=== PATIENT | male | born 1980 | race Caucasian/White ===

== ENCOUNTER 2018-03-21 18:49 | Emergency (ER) | payer SELFPAY ==
[~2018-03-21] VITALS: Ht 167.6 cm; Wt 95.3 kg
[2018-03-21 18:55] VITALS: BP 86/52
--- NOTE | 2018-03-21 19:20 | NUR ---
PT BIB PD TO ED FOR PRE- BOOK. PT ETOH, DENIES PMH. AAO X3, GCS 14, RESPIRATIONS EVEN AND UNLABORED. AMBULATORY WITH ASSIST. SKIN WARM/PINK/DRY +PMSC. VS, BP ELEVATED, TACHY CARDIAC HR 120'S. DR. CHOUDHARY MADE AWARE OF PT STATUS
[2018-03-21] MEDS ORDERED: NACL 0.9% 2,000 ML IV ONE (19:55)
--- NOTE | 2018-03-21 19:55 | NUR ---
PT BIB PD TO ED BED 5
--- NOTE | 2018-03-21 20:40 | NUR ---
PT LEFT ED WITH PD NAD NOTED. PRE-BOOKED FORM SENT WITH PT. CONDITION & VSS AT TIME OF DISCHARGED.
[2018-03-21 20:48] VITALS: BP 132/81
== END 2018-03-21 20:40 | disposition home or self-care (01) ==
LOC: MED 18:49
DX: F10.129 Alcohol abuse with intoxication, unspecified (principal); I10 Essential (primary) hypertension; Z02.89 Encounter for other administrative examinations
CPT/HCPCS: 99283; 99284

== ENCOUNTER 2020-04-18 11:46 | Emergency (ER) | payer MEDICAID ==
[~2020-04-18] VITALS: Ht 167.6 cm; Wt 106.1 kg
--- NOTE | 2020-04-18 11:47 | NUR ---
Patient BIBA BLS, transferred to bed 4. RN evaluating patient at bedside.
[2020-04-18 11:50] VITALS: BP 130/87
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
--- NOTE | 2020-04-18 11:59 | NUR ---
Dr. Chilel is evaluating the patient at bedside.
--- NOTE | 2020-04-18 12:20 | NUR ---
Patient returned from CT scan. RN reevaluating the patient at bedside.
--- NOTE | 2020-04-18 12:21 | NUR ---
licensed chemical spray technician at bedside.
--- NOTE | 2020-04-18 12:46 | NUR ---
Lunch provided to pt and he states he does not want to eat at this time.
[2020-04-18 14:16] VITALS: BP 128/87
--- NOTE | 2020-04-18 14:16 | NUR ---
Patient discharged with v/s stable. Written and verbal after care instructions given and explained. Patient verbalized understanding. Ambulatory with steady gait. All questions addressed prior to discharge. Advised to follow up with PMD.
== END 2020-04-18 14:16 | disposition home or self-care (01) ==
LOC: MED 11:46
DX: S00.83XA Contusion of other part of head, initial encounter (principal); M25.532 Pain in left wrist; F10.129 Alcohol abuse with intoxication, unspecified; W18.09XA Striking against other object with subsequent fall, initial encounter; Y93.89 Activity, other specified; Y92.89 Other specified places as the place of occurrence of the external cause; Y99.8 Other external cause status; Y90.9 Presence of alcohol in blood, level not specified
CPT/HCPCS: 70450; 72125; 73110; 99285

== ENCOUNTER 2020-04-26 12:51 | Emergency (ER) | payer MEDICAID ==
[~2020-04-26] VITALS: Ht 162.6 cm; Wt 99.8 kg
[2020-04-26 13:00] VITALS: BP 124/75
[2020-04-26] MEDS ORDERED: FAMOTIDINE 20 MG/2 ML VIAL IVP ONE (14:00)
[2020-04-26] MEDS ORDERED: NACL 0.9% 1,000 ML IV ONE (14:00)
[2020-04-26] MEDS ORDERED: ONDANSETRON 4 MG/2 ML VIAL IVP ONE (14:00)
[2020-04-26 14:27] LABS: BASOPHILS # (AUTO) 0.1 K/uL (0.00-0.22); BASOPHILS % (AUTO) 0.7 % (0.0-2.0); EOSINOPHILS % (AUTO) 0.1 % (0.0-4.0); HEMATOCRIT 46.9 % (36-52); HEMOGLOBIN 15.9 g/dL (12.0-18.0); LYMPHOCYTES # (AUTO) 1.5 K/uL (2.0-11.5); LYMPHOCYTES % (AUTO) 17.5 % (20.5-51.1); MEAN CORPUSCULAR HEMOGLOBIN 32 pg (27-31); MEAN CORPUSCULAR HGB CONC 34 g/dL (33-37); MEAN CORPUSCULAR VOLUME 93.1 fL (80-94); MONOCYTES # (AUTO) 0.3 K/uL (0.8-1.0); MONOCYTES % (AUTO) 3.9 % (1.7-9.3); NEUTROPHILS # (AUTO) 6.8 K/uL (1.8-7.7); NEUTROPHILS % (AUTO) 77.8 % (42.2-75.2); PLATELET COUNT (AUTO) 117 K/uL (140-450); RED BLOOD CELL COUNT(AUTO) 5.03 MIL/uL (4.20-6.10); RED CELL DISTRIBUTION WIDTH 16.6 % (11.6-13.7); WHITE BLOOD COUNT (AUTO) 8.7 K/uL (4.8-10.8)
[2020-04-26 14:49] LABS: ANION GAP 17.8 (8-16); CARBON DIOXIDE 24.2 mmol/L (21-32); CREATININE 0.8 mg/dL (0.6-1.3); TOTAL BILIRUBIN 1.5 mg/dL (0.0-1.0)
[2020-04-26 14:56] LABS: APPEARANCE,URINE HAZY (CLEAR); BILIRUBIN,URINE 1+ (NEGATIVE); BLOOD, URINE 2+ (NEGATIVE); COLOR,URINE BROWN (YELLOW); LEUKOCYTE ESTERASE ,URINE NEGATIVE (NEGATIVE); NITRITE, URINE NEGATIVE (NEGATIVE); UGLUCOSE NEGATIVE (NEGATIVE)
[2020-04-26 15:29] LABS: RBC,URINE 11-20 (MOD) /HPF (0-5); WBC,URINE 0-5 /HPF (0-5)
[2020-04-26 15:30] LABS: COARSE GRANULAR CASTS,URINE 0-10 /LPF (None Seen); FINE GRANULAR CASTS,URINE 0-10 /LPF (None Seen)
[2020-04-26 16:06] VITALS: BP 118/78
== END 2020-04-26 16:06 | disposition home or self-care (01) ==
LOC: MED 12:51
DX: R53.1 Weakness (principal); E86.0 Dehydration; F10.10 Alcohol abuse, uncomplicated; F15.90 Other stimulant use, unspecified, uncomplicated; K70.9 Alcoholic liver disease, unspecified; D69.6 Thrombocytopenia, unspecified; R11.2 Nausea with vomiting, unspecified; I10 Essential (primary) hypertension
CPT/HCPCS: 36415; 80053; 81001; 83690; 85025; 87086; 93005; 96361; 96374; 96375; 99284; J2405; J3490; J7030

== ENCOUNTER 2020-05-06 15:31 | Emergency (ER) | payer MEDICAID ==
[~2020-05-06] VITALS: Ht 167.6 cm; Wt 95.3 kg
[2020-05-06 15:37] VITALS: BP 139/92
[2020-05-06] MEDS: IBUPROFEN 600 MG TAB PO ONE (16:28)
[2020-05-06 17:25] VITALS: BP 139/92
== END 2020-05-06 17:25 | disposition home or self-care (01) ==
LOC: MED 15:31
DX: F10.99 Alcohol use, unspecified with unspecified alcohol-induced disorder (principal); F15.10 Other stimulant abuse, uncomplicated; Z20.828 Contact with and (suspected) exposure to other viral communicable diseases
CPT/HCPCS: 71045; 99284

== ENCOUNTER 2020-08-26 15:32 | Emergency (ER) | payer MEDICAID ==
[~2020-08-26] VITALS: Ht 170.2 cm; Wt 49.9 kg
[2020-08-26 15:53] VITALS: BP 115/79
[2020-08-26 16:39] LABS: BASOPHILS # (AUTO) 0.1 K/uL (0.00-0.22); EOSINOPHILS # (AUTO) 0.1 K/uL (0-0.4); HEMATOCRIT 50.9 % (36-52); HEMOGLOBIN 16.7 g/dL (12.0-18.0); LYMPHOCYTES # (AUTO) 2.6 K/uL (2.0-11.5); LYMPHOCYTES % (AUTO) 29.3 % (20.5-51.1); MEAN CORPUSCULAR HEMOGLOBIN 32 pg (27-31); MEAN CORPUSCULAR HGB CONC 33 g/dL (33-37); MEAN CORPUSCULAR VOLUME 97.5 fL (80-94); MONOCYTES # (AUTO) 0.6 K/uL (0.8-1.0); MONOCYTES % (AUTO) 6.7 % (1.7-9.3); NEUTROPHILS # (AUTO) 5.4 K/uL (1.8-7.7); PLATELET COUNT (AUTO) 235 K/uL (140-450); RED BLOOD CELL COUNT(AUTO) 5.23 MIL/uL (4.20-6.10); RED CELL DISTRIBUTION WIDTH 15.9 % (11.6-13.7); WHITE BLOOD COUNT (AUTO) 8.8 K/uL (4.8-10.8)
[2020-08-26 16:55] LABS: ALBUMIN 3.8 g/dL (3.4-5.0); ASPARTATE AMINOTRANSFERASE 89 U/L (15-37); CARBON DIOXIDE 26.8 mmol/L (21-32); CHLORIDE 106 mmol/L (98-107); CREATININE 0.9 mg/dL (0.6-1.3); GFR ARICAN-AMERICAN 122 mL/min (>90); GLUCOSE 99 mg/dL (74-106); POTASSIUM 3.8 mmol/L (3.5-5.1); SODIUM SERUM 144 mmol/L (136-145); TOTAL BILIRUBIN 0.2 mg/dL (0.0-1.0); UREA NITROGEN, BLOOD 10 mg/dL (7-18)
[2020-08-26] MEDS: NACL 0.9% 1,000 ML IV ONE (16:56)
[2020-08-26 17:02] LABS: SALICYLATE < 2.8 mg/dL (2.8-20.0)
[2020-08-26 17:04] LABS: ACETAMINOPHEN < 0.5 ug/ml (10-30)
[2020-08-26 22:00] VITALS: BP 103/65
== END 2020-08-26 22:00 | disposition home or self-care (01) ==
LOC: MED 15:32
DX: F10.129 Alcohol abuse with intoxication, unspecified (principal); I10 Essential (primary) hypertension; Y90.9 Presence of alcohol in blood, level not specified
CPT/HCPCS: 36415; 70450; 80053; 85025; 93005; 96360; 96361; 99285; G0480; G0482

== ENCOUNTER 2020-09-26 22:15 | Emergency (ER) | payer MEDICAID ==
[~2020-09-26] VITALS: Ht 167.6 cm; Wt 99.8 kg
--- NOTE | 2020-09-26 22:15 | NUR ---
PT BIBA ALS. TAKEN TO BED 10. DR. ALICIA AT BEDSIDE
--- NOTE | 2020-09-26 22:18 | NUR ---
RT AT BEDSIDE
[2020-09-26] MEDS ORDERED: LORazepam 2 MG/ML VIAL IVP ONE ×3 (22:25→22:35)
[2020-09-26] MEDS ORDERED: NACL 0.9% 1,000 ML IV ONE (22:25)
[2020-09-26] MEDS ORDERED: THIAMINE 200 MG/2 ML VIAL IM ONE (22:25)
[2020-09-26 22:26] VITALS: BP 131/70
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
[2020-09-26 22:31] LABS: BASOPHILS # (AUTO) 0.1 K/uL (0.00-0.22); EOSINOPHILS % (AUTO) 0.6 % (0.0-4.0); HEMATOCRIT 37.7 % (36-52); HEMOGLOBIN 12.6 g/dL (12.0-18.0); LYMPHOCYTES # (AUTO) 1.7 K/uL (2.0-11.5); LYMPHOCYTES % (AUTO) 22.4 % (20.5-51.1); MEAN CORPUSCULAR HEMOGLOBIN 33 pg (27-31); MEAN CORPUSCULAR HGB CONC 33 g/dL (33-37); MEAN CORPUSCULAR VOLUME 98.8 fL (80-94); MONOCYTES % (AUTO) 13.4 % (1.7-9.3); NEUTROPHILS # (AUTO) 4.6 K/uL (1.8-7.7); NEUTROPHILS % (AUTO) 62.6 % (42.2-75.2); PLATELET COUNT (AUTO) 102 K/uL (140-450); RED BLOOD CELL COUNT(AUTO) 3.82 MIL/uL (4.20-6.10); RED CELL DISTRIBUTION WIDTH 15.2 % (11.6-13.7); WHITE BLOOD COUNT (AUTO) 7.4 K/uL (4.8-10.8)
--- NOTE | 2020-09-26 22:40 | NUR ---
X-Ray at bedside.
--- NOTE | 2020-09-26 22:41 | NUR ---
PT TAKEN TO RADIOLOGY
[2020-09-26] MEDS ORDERED: LORazepam 2 MG/ML VIAL IM/IVP ONE (22:45)
[2020-09-26 22:51] LABS: ALBUMIN 3.5 g/dL (3.4-5.0); ANION GAP 26.9 (8-16); ASPARTATE AMINOTRANSFERASE 365 U/L (15-37); CARBON DIOXIDE 17.3 mmol/L (21-32); CHLORIDE 91 mmol/L (98-107); CREATININE 1.2 mg/dL (0.6-1.3); GFR ARICAN-AMERICAN 88 mL/min (>90); GLUCOSE 167 mg/dL (74-106); POTASSIUM 3.2 mmol/L (3.5-5.1); SODIUM SERUM 132 mmol/L (136-145); TOTAL BILIRUBIN 2.4 mg/dL (0.0-1.0); UREA NITROGEN, BLOOD 6 mg/dL (7-18)
[2020-09-26 22:54] LABS: ACETAMINOPHEN < 0.5 ug/ml (10-30); SALICYLATE < 2.8 mg/dL (2.8-20.0)
--- NOTE | 2020-09-26 23:00 | NUR ---
# 15 FR Urinary catheter inserted utilizing sterile technique. UNABLE TO OBTAIN URINE D/T PATIENT AGITATED, PULLING AT CATHETER. Pt DID NOT tolerate procedure. ERMD MADE AWARE.
[2020-09-26] MEDS ORDERED: levETIRAcetam 100 MG/ML VIAL IV ONE (23:08)
[2020-09-26] MEDS ORDERED: levETIRAcetam 1,000 MG in NACL 0.9% 100 ML IV ONE (23:20)
[2020-09-26] MEDS ORDERED: INTUBATION KIT MC ONE (23:42)
--- NOTE | 2020-09-26 23:55 | NUR ---
NELIDA SWAB COLLECTED AND HANDED TO LAINA TREVIÑO
--- NOTE | 2020-09-27 00:08 | NUR ---
CALLED PATIENTS MOTHER, OBTAINED TELEPHONE CONSENT, CONFIRMED BY 2 RN'S, FOR TRANSFER TO [facility].
--- NOTE | 2020-09-27 00:09 | NUR ---
CALLED [facility] ER, SPOKE WITH DAVID WHO STATED TO CALL BACK WHEN PATIENT IS TRANSFERRED TO SPEAK WITH ASSIGNED NURSE. MADE AWARE [facility] ETA 30-45 MIN.
--- NOTE | 2020-09-27 00:16 | NUR ---
[facility] TRANSPORT AT BEDSIDE
--- NOTE | 2020-09-27 00:24 | NUR ---
Patient to be transferred to [facility]. Is being transferred due to HIGHER LEVEL OF CARE. Receiving facility has accepting physician and available space. ER physician has signed transfer form. Patient or responsible constitution party has agreed to transfer and signed form. Patient belongings inventoried and will be sent with patient. Copy of nursing notes, lab reports, EKG, Physicians Orders and X-rays to be sent with patient. Report called to CHET MYRICK at receiving facility. [facility] ambulance service has been called for transfer. ETA TO FACILITY is 5 MINUTES. Addendum: 09/27/20 at 0036 by [email or web address] CHET MYRICK [phone]
[2020-09-27 00:29] VITALS: BP 131/70
--- NOTE | 2020-09-27 00:36 | NUR ---
PT TAKEN BY [facility] TRANSPORT TO [facility] ER
== END 2020-09-27 00:36 | disposition designated cancer center or children's hospital (05) ==
LOC: MED 22:15
DX: I61.9 Nontraumatic intracerebral hemorrhage, unspecified (principal); Z20.822 Contact with and (suspected) exposure to COVID-19
CPT/HCPCS: 36415; 70450; 71045; 80053; 82550; 82553; 84484; 85025; 87426; 93005; 96361; 96365; 96372; 96375; 96376; 99285; C1758; G0480; G0482; J1953; J2060; J3411; J7030

== ENCOUNTER 2021-03-17 04:18 | Emergency (ER) | payer MEDICAID ==
[~2021-03-17] VITALS: Ht 162.6 cm; Wt 81.6 kg
[2021-03-17 04:18] VITALS: BP 103/60
--- NOTE | 2021-03-17 04:18 | NUR ---
0403- PT JAZZ ROJAS
--- NOTE | 2021-03-17 04:18 | NUR ---
0405- Dr. Maloney examining patient.
[2021-03-17] MEDS ORDERED: NACL 0.9% 1,000 ML IV ONE (04:25)
--- NOTE | 2021-03-17 04:30 | NUR ---
IV 20 G EST TO RAC. LABS DRAWN AND WALKED TO LAB.
--- NOTE | 2021-03-17 04:30 | NUR ---
PT [place]A [place]. [facility] REPORTS PD FOUND PT LAYING IN [place] WITH BEER CANS NEXT TO HIM. PT DEMONSTRATED ABILITY TO WALK. STATES HIS NAME IS "HIREN", HOWEVER NO IDENFICATION ON PT. NOTED WITH BUMP TO RIGHT SIDE OF FOREHEAD. PT DENIES FALLING OR ALTERCATION. COOPERATIVE AND CALM AT THIS TIME. MEDHX- UNOBTAINABLE ALLX- UNOBTAINABLE
[2021-03-17] MEDS ORDERED: MAGNESIUM OXIDE 400 MG TAB PO ONE (04:40)
[2021-03-17] MEDS ORDERED: FOLIC ACID 1 MG TAB PO ONE (04:40)
--- NOTE | 2021-03-17 04:41 | NUR ---
PT UNABLE TO URINATE AT THIS TIME. WILL TRY AGAIN.
[2021-03-17] MEDS ORDERED: MULTIVITAMIN 1 TAB ONE (04:49)
[2021-03-17 04:57] LABS: BASOPHILS # (AUTO) 0.1 K/uL (0.00-0.22); BASOPHILS % (AUTO) 0.8 % (0.0-2.0); EOSINOPHILS # (AUTO) 0.1 K/uL (0-0.4); HEMATOCRIT 38.1 % (36-52); HEMOGLOBIN 12.5 g/dL (12.0-18.0); LYMPHOCYTES # (AUTO) 2.7 K/uL (2.0-11.5); LYMPHOCYTES % (AUTO) 37.2 % (20.5-51.1); MEAN CORPUSCULAR HEMOGLOBIN 29 pg (27-31); MEAN CORPUSCULAR HGB CONC 33 g/dL (33-37); MEAN CORPUSCULAR VOLUME 89.2 fL (80-94); MONOCYTES # (AUTO) 0.6 K/uL (0.8-1.0); MONOCYTES % (AUTO) 8.2 % (1.7-9.3); NEUTROPHILS # (AUTO) 3.8 K/uL (1.8-7.7); NEUTROPHILS % (AUTO) 51.8 % (42.2-75.2); PLATELET COUNT (AUTO) 249 K/uL (140-450); RED BLOOD CELL COUNT(AUTO) 4.27 MIL/uL (4.20-6.10); WHITE BLOOD COUNT (AUTO) 7.3 K/uL (4.8-10.8)
[2021-03-17 05:12] LABS: ALBUMIN 3.5 g/dL (3.4-5.0); CARBON DIOXIDE 27.6 mmol/L (21-32); CREATININE 0.6 mg/dL (0.6-1.3); POTASSIUM 3.6 mmol/L (3.5-5.1); TOTAL BILIRUBIN 0.2 mg/dL (0.0-1.0)
--- NOTE | 2021-03-17 06:13 | NUR ---
Patient appears to be resting comfortably in bed, AUDIBLE SNORING NOTED. AROUSABLE TO VOICE. Vital Signs within normal limits. Respirations even and unlabored. WILL CONTINUE TO MONITOR.
--- NOTE | 2021-03-17 06:40 | NUR ---
URINE COLLECTED VIA BEDSIDE URINAL. 350 CC CLEAR, YELLOW URINE NOTED. SAMPLE SENT TO LAB.
[2021-03-17 07:05] LABS: APPEARANCE,URINE CLEAR (CLEAR); BILIRUBIN,URINE NEGATIVE (NEGATIVE); BLOOD, URINE NEGATIVE (NEGATIVE); COLOR,URINE YELLOW (YELLOW); LEUKOCYTE ESTERASE ,URINE NEGATIVE (NEGATIVE); NITRITE, URINE NEGATIVE (NEGATIVE); PH,URINE 5.5 (5.0-9.0); UGLUCOSE NEGATIVE (NEGATIVE)
--- NOTE | 2021-03-17 07:16 | NUR ---
REPORT GIVEN TO CHET VIRK FOR CONTINUITY OF CARE.
--- NOTE | 2021-03-17 07:20 | NUR ---
Report received from Oralia ROSENBERG, assume care at this time.
[2021-03-17 07:24] LABS: BARBITURATE, URINE NEGATIVE ng/ml (NEG <=200); BENZODIAZEPINE, URINE NEGATIVE ng/mL (NEG <=200); CANNABINOID, URINE NEGATIVE ng/mL (NEG <=50); COCAINE, URINE NEGATIVE ng/mL (NEG <=300); OPIATE, URINE NEGATIVE ng/mL (NEG <=2000); PHENCYCLIDINE SCREEN,URINE NEGATIVE ng/mL (NEG <=25)
--- NOTE | 2021-03-17 07:38 | NUR ---
Patient appears to be resting comfortably in bed, audible snoring noted. Arousable to voice, VSS within normal limits. Respirations even and unlabored. Will continue to monitor.
[2021-03-17] MEDS ORDERED: MULTIVITAMIN/MINERALS 1 TAB PO SCH (09:00)
--- NOTE | 2021-03-17 09:00 | NUR ---
Patient appears to be resting comfortably in bed, audible snoring noted. Arousable to voice, VSS within normal limits. Respirations even and unlabored. Will continue to monitor.
--- NOTE | 2021-03-17 10:45 | NUR ---
PATIENT ROAD TESTED, PER DR. ALEXA GARCIA TO BED D/C HOME.
[2021-03-17 11:23] VITALS: BP 119/87
--- NOTE | 2021-03-28 09:16 | NUR ---
LATE ENTRY---NORMAL SALINE IV FLUIDS DISCONTINUED AT 1125.
== END 2021-03-17 11:25 | disposition home or self-care (01) ==
LOC: EDBD 04:18 → MED 04:18 → EDUNIT# 04:18 → MED 11:25
DX: F10.129 Alcohol abuse with intoxication, unspecified (principal)
CPT/HCPCS: 36415; 80053; 80305; 81003; 85025; 96360; 96361; 99284; J7030

== ENCOUNTER 2021-04-01 21:26 | Emergency (ER) | payer MEDICAID ==
[~2021-04-01] VITALS: Ht 167.6 cm; Wt 90.7 kg
[2021-04-01 21:28] VITALS: BP 140/88
[2021-04-01 22:26] LABS: BASOPHILS % (AUTO) 0.6 % (0.0-2.0); EOSINOPHILS # (AUTO) 0.1 K/uL (0-0.4); EOSINOPHILS % (AUTO) 0.6 % (0.0-4.0); HEMATOCRIT 42.5 % (36-52); HEMOGLOBIN 13.8 g/dL (12.0-18.0); LYMPHOCYTES # (AUTO) 2.9 K/uL (2.0-11.5); MEAN CORPUSCULAR HEMOGLOBIN 30 pg (27-31); MEAN CORPUSCULAR HGB CONC 32 g/dL (33-37); MEAN CORPUSCULAR VOLUME 91.3 fL (80-94); MONOCYTES # (AUTO) 0.5 K/uL (0.8-1.0); MONOCYTES % (AUTO) 6.5 % (1.7-9.3); NEUTROPHILS # (AUTO) 4.5 K/uL (1.8-7.7); NEUTROPHILS % (AUTO) 56.3 % (42.2-75.2); PLATELET COUNT (AUTO) 251 K/uL (140-450); RED BLOOD CELL COUNT(AUTO) 4.66 MIL/uL (4.20-6.10); RED CELL DISTRIBUTION WIDTH 16.6 % (11.6-13.7)
[2021-04-01 23:01] LABS: ALBUMIN 4.3 g/dL (3.4-5.0); ANION GAP 17.3 (8-16); CARBON DIOXIDE 24.4 mmol/L (21-32); CREATININE 0.8 mg/dL (0.6-1.3); POTASSIUM 3.7 mmol/L (3.5-5.1); TOTAL BILIRUBIN 0.3 mg/dL (0.0-1.0)
[2021-04-01 23:14] VITALS: BP 140/88
--- NOTE | 2021-04-01 23:14 | NUR ---
NO NURSING INTERVENTIONS NEEDED
--- NOTE | 2021-04-01 23:15 | NUR ---
PATIENT [facility] POLICE DEPT. PATIENT EXAMINED BY DR. HILLIARD. PATIENT MEDICALLY CLEARED AND RELEASED IN CUSTODY IN STABLE CONDITION. ORIGINAL PRE-BOOK FORM GIVEN TO OFFICER YASMIN.
== END 2021-04-01 23:15 ==
LOC: MED 21:26
DX: S00.83XA Contusion of other part of head, initial encounter (principal); F10.129 Alcohol abuse with intoxication, unspecified; Z02.89 Encounter for other administrative examinations; X58.XXXA Exposure to other specified factors, initial encounter; Y93.89 Activity, other specified; Y92.89 Other specified places as the place of occurrence of the external cause; Y99.8 Other external cause status
CPT/HCPCS: 36415; 70450; 80053; 85025; 99284; G0482

== ENCOUNTER 2021-09-09 00:20 | Emergency (ER) | payer MEDICAID ==
[~2021-09-09] VITALS: Ht 162.6 cm; Wt 86.2 kg
--- NOTE | 2021-09-09 00:22 | NUR ---
CARLOS SCHULZ ALS TO ER BED 09
[2021-09-09 00:23] VITALS: BP 132/93
--- NOTE | 2021-09-09 00:39 | NUR ---
Received as a RUN, here for alcohol intoxication. On assesment patient is somnolent, aox3, connected to cardiac monitoring. ED MD at the bedside, awaiting for orders.
[2021-09-09] MEDS ORDERED: NACL 0.9% 1,000 ML IV ONE (00:40)
[2021-09-09] MEDS ORDERED: NACL 0.9% 2,000 ML IV ONE (00:40)
[2021-09-09] MEDS ORDERED: NALOXONE PFS 2 MG/2 ML SYR IVP ONE (00:40)
--- NOTE | 2021-09-09 00:45 | NUR ---
g18 iv started on left ac
--- NOTE | 2021-09-09 00:54 | NUR ---
patient transported to radiology for CT head
--- NOTE | 2021-09-09 01:08 | NUR ---
patient back from CT, condom catheter placed and connected to urine bag, awaiting for urine sample for UDS.
[2021-09-09 01:16] LABS: ASPARTATE AMINOTRANSFERASE 29 U/L (15-37); CHLORIDE 102 mmol/L (98-107); CREATININE 0.6 mg/dL (0.6-1.3); GFR ARICAN-AMERICAN 194 mL/min (>90); GLUCOSE 87 mg/dL (74-106); SODIUM SERUM 141 mmol/L (136-145); TOTAL BILIRUBIN 0.3 mg/dL (0.0-1.0); UREA NITROGEN, BLOOD 7 mg/dL (7-18)
[2021-09-09 01:27] LABS: SALICYLATE < 2.8 mg/dL (2.8-20.0)
[2021-09-09 01:28] LABS: ACETAMINOPHEN < 0.5 ug/ml (10-30)
[2021-09-09 02:06] LABS: BASOPHILS # (AUTO) 0.1 K/uL (0.00-0.22); BASOPHILS % (AUTO) 0.6 % (0.0-2.0); EOSINOPHILS # (AUTO) 0.1 K/uL (0-0.4); EOSINOPHILS % (AUTO) 1.1 % (0.0-4.0); HEMATOCRIT 44.2 % (36-52); HEMOGLOBIN 14.7 g/dL (12.0-18.0); LYMPHOCYTES # (AUTO) 2.5 K/uL (2.0-11.5); LYMPHOCYTES % (AUTO) 28.9 % (20.5-51.1); MEAN CORPUSCULAR HEMOGLOBIN 30 pg (27-31); MEAN CORPUSCULAR HGB CONC 33 g/dL (33-37); MEAN CORPUSCULAR VOLUME 90.4 fL (80-94); MONOCYTES # (AUTO) 0.7 K/uL (0.8-1.0); NEUTROPHILS # (AUTO) 5.3 K/uL (1.8-7.7); NEUTROPHILS % (AUTO) 61.4 % (42.2-75.2); PLATELET COUNT (AUTO) 291 K/uL (140-450); RED BLOOD CELL COUNT(AUTO) 4.89 MIL/uL (4.20-6.10); RED CELL DISTRIBUTION WIDTH 16.3 % (11.6-13.7); WHITE BLOOD COUNT (AUTO) 8.6 K/uL (4.8-10.8)
--- NOTE | 2021-09-09 04:15 | NUR ---
Urine bag checked for output, bag empty.
[2021-09-09 06:00] VITALS: BP 107/59
--- NOTE | 2021-09-09 06:15 | NUR ---
patient now fully awake, road test done and noted steady gait. Provided with fresh set of clothing, iv line removed, exited ED with stable VS.
== END 2021-09-09 06:45 | disposition home or self-care (01) ==
LOC: MED 00:20
DX: F10.129 Alcohol abuse with intoxication, unspecified (principal); R41.82 Altered mental status, unspecified; I10 Essential (primary) hypertension
CPT/HCPCS: 36415; 70450; 71045; 80053; 84484; 85025; 93005; 96361; 96374; 99285; G0480; G0482; J2310; Q0092

== ENCOUNTER 2021-09-21 14:23 | Emergency (ER) | payer MEDICAID ==
[~2021-09-21] VITALS: Ht 170.2 cm; Wt 83.9 kg
[2021-09-21 14:30] VITALS: BP 121/78
--- NOTE | 2021-09-21 14:37 | NUR ---
SISTER: [phone]
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
--- NOTE | 2021-09-21 15:31 | NUR ---
pt courtney tellez, ambulated with steady gait, Dr hammonds made aware
[2021-09-21 16:05] VITALS: BP 128/82
--- NOTE | 2021-09-21 16:05 | NUR ---
DCPatient discharged with v/s stable. Written and verbal after care instructions given and explained. Patient verbalized understanding. Ambulatory with steady gait. All questions addressed prior to discharge. Advised to follow up with PMD.
== END 2021-09-21 16:05 | disposition home or self-care (01) ==
LOC: MED 14:23
DX: S80.212A Abrasion, left knee, initial encounter (principal); F10.10 Alcohol abuse, uncomplicated; I10 Essential (primary) hypertension; Z98.890 Other specified postprocedural states; X58.XXXA Exposure to other specified factors, initial encounter; Y92.89 Other specified places as the place of occurrence of the external cause; Y93.89 Activity, other specified; Y99.8 Other external cause status
CPT/HCPCS: 99283

== ENCOUNTER 2021-09-23 17:58 | Emergency (ER) | payer MEDICAID ==
[~2021-09-23] VITALS: Ht 170.2 cm; Wt 72.6 kg
[2021-09-23 17:58] VITALS: BP 101/52
--- NOTE | 2021-09-23 18:02 | NUR ---
PATIENT TO CHD W/C ASSIST
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
[2021-09-23 19:16] LABS: BASOPHILS # (AUTO) 0.1 K/uL (0.00-0.22); BASOPHILS % (AUTO) 0.9 % (0.0-2.0); EOSINOPHILS # (AUTO) 0.1 K/uL (0-0.4); EOSINOPHILS % (AUTO) 1.1 % (0.0-4.0); HEMATOCRIT 42.6 % (36-52); HEMOGLOBIN 14.4 g/dL (12.0-18.0); LYMPHOCYTES # (AUTO) 2.4 K/uL (2.0-11.5); LYMPHOCYTES % (AUTO) 34.5 % (20.5-51.1); MEAN CORPUSCULAR HEMOGLOBIN 31 pg (27-31); MEAN CORPUSCULAR HGB CONC 34 g/dL (33-37); MEAN CORPUSCULAR VOLUME 90.4 fL (80-94); MONOCYTES # (AUTO) 0.5 K/uL (0.8-1.0); MONOCYTES % (AUTO) 6.9 % (1.7-9.3); NEUTROPHILS % (AUTO) 56.6 % (42.2-75.2); PLATELET COUNT (AUTO) 264 K/uL (140-450); RED BLOOD CELL COUNT(AUTO) 4.71 MIL/uL (4.20-6.10); RED CELL DISTRIBUTION WIDTH 16.7 % (11.6-13.7)
[2021-09-23 19:35] LABS: ANION GAP 15.8 (8-16); CARBON DIOXIDE 24.8 mmol/L (21-32); CHLORIDE 99 mmol/L (98-107); CREATININE 0.8 mg/dL (0.6-1.3); GFR ARICAN-AMERICAN 139 mL/min (>90); GLUCOSE 83 mg/dL (74-106); POTASSIUM 3.6 mmol/L (3.5-5.1); SODIUM SERUM 136 mmol/L (136-145); UREA NITROGEN, BLOOD 6 mg/dL (7-18)
[2021-09-23 19:43] LABS: ALBUMIN 4.2 g/dL (3.4-5.0); ASPARTATE AMINOTRANSFERASE 42 U/L (15-37); TOTAL BILIRUBIN 0.6 mg/dL (0.0-1.0)
--- NOTE | 2021-09-23 19:48 | NUR ---
provided pt with grayson
[2021-09-23 20:02] LABS: SALICYLATE < 2.8 mg/dL (2.8-20.0)
[2021-09-23 20:04] LABS: ACETAMINOPHEN < 0.5 ug/ml (10-30)
[2021-09-23 20:21] LABS: BARBITURATE, URINE NEGATIVE ng/ml (NEG <=200); BENZODIAZEPINE, URINE NEGATIVE ng/mL (NEG <=200); CANNABINOID, URINE NEGATIVE ng/mL (NEG <=50); COCAINE, URINE NEGATIVE ng/mL (NEG <=300); OPIATE, URINE NEGATIVE ng/mL (NEG <=2000); PHENCYCLIDINE SCREEN,URINE NEGATIVE ng/mL (NEG <=25)
[2021-09-23] MEDS ORDERED: MULTIVITAMIN-12 10 ML, FOLIC ACID 1 MG in NACL 0.9% 1,000 ML IV ONE (20:25)
[2021-09-23] MEDS ORDERED: NACL 0.9% 1,000 ML IV ONE (20:25)
--- NOTE | 2021-09-23 22:33 | NUR ---
IV removed, catheter intact and site benign. Applied folded 4x4 gauze and tape to stop bleeding.
[2021-09-23 22:35] VITALS: BP 118/77
--- NOTE | 2021-09-23 22:35 | NUR ---
Patient discharged with v/s stable. Written and verbal after care instructions given and explained. Patient verbalized understanding. Ambulatory with steady gait. All questions addressed prior to discharge. Advised to follow up with PMD. PATIENT REFUSED TRANSPORTATION, FOOD, HOMELESS PACKET, OR EXTRA CLOTHES.
== END 2021-09-23 22:35 | disposition home or self-care (01) ==
LOC: MED 17:58
DX: F10.129 Alcohol abuse with intoxication, unspecified (principal); R41.82 Altered mental status, unspecified; I10 Essential (primary) hypertension
CPT/HCPCS: 36415; 80053; 80305; 85025; 99283; G0480; G0482; J7030

== ENCOUNTER 2021-10-16 12:37 | Emergency (ER) | payer MEDICAID ==
[~2021-10-16] VITALS: Ht 157.5 cm; Wt 82.1 kg
[2021-10-16 12:45] VITALS: BP 144/65
[2021-10-16 13:45] LABS: APPEARANCE,URINE CLEAR (CLEAR); BILIRUBIN,URINE NEGATIVE (NEGATIVE); BLOOD, URINE NEGATIVE (NEGATIVE); COLOR,URINE YELLOW (YELLOW); LEUKOCYTE ESTERASE ,URINE NEGATIVE (NEGATIVE); NITRITE, URINE NEGATIVE (NEGATIVE); UGLUCOSE NEGATIVE (NEGATIVE)
[2021-10-16 13:51] LABS: BASOPHILS # (AUTO) 0.1 K/uL (0.00-0.22); BASOPHILS % (AUTO) 1.2 % (0.0-2.0); EOSINOPHILS % (AUTO) 0.3 % (0.0-4.0); HEMATOCRIT 44.9 % (36-52); HEMOGLOBIN 14.9 g/dL (12.0-18.0); LYMPHOCYTES # (AUTO) 1.9 K/uL (2.0-11.5); LYMPHOCYTES % (AUTO) 25.5 % (20.5-51.1); MEAN CORPUSCULAR HEMOGLOBIN 31 pg (27-31); MEAN CORPUSCULAR HGB CONC 33 g/dL (33-37); MEAN CORPUSCULAR VOLUME 92.9 fL (80-94); MONOCYTES # (AUTO) 0.4 K/uL (0.8-1.0); MONOCYTES % (AUTO) 5.6 % (1.7-9.3); NEUTROPHILS # (AUTO) 5.1 K/uL (1.8-7.7); NEUTROPHILS % (AUTO) 67.4 % (42.2-75.2); PLATELET COUNT (AUTO) 329 K/uL (140-450); RED BLOOD CELL COUNT(AUTO) 4.83 MIL/uL (4.20-6.10); RED CELL DISTRIBUTION WIDTH 17.1 % (11.6-13.7); WHITE BLOOD COUNT (AUTO) 7.6 K/uL (4.8-10.8)
[2021-10-16 14:06] LABS: ALBUMIN 4.2 g/dL (3.4-5.0); ANION GAP 12.2 (8-16); CREATININE 0.6 mg/dL (0.6-1.3); POTASSIUM 4.2 mmol/L (3.5-5.1); TOTAL BILIRUBIN 0.4 mg/dL (0.0-1.0)
--- NOTE | 2021-10-16 14:10 | NUR ---
SPOKE TO PATIENT, PATIENT HAS LANGUAGE DEFECIT DUE TO LEFT CRANIOTOMY HE DENIES ANY PAIN NOR DISCOMFORT AT THIS TIME.
[2021-10-16 14:36] LABS: BARBITURATE, URINE NEGATIVE ng/ml (NEG <=200); BENZODIAZEPINE, URINE NEGATIVE ng/mL (NEG <=200); CANNABINOID, URINE NEGATIVE ng/mL (NEG <=50); COCAINE, URINE NEGATIVE ng/mL (NEG <=300); OPIATE, URINE NEGATIVE ng/mL (NEG <=2000); PHENCYCLIDINE SCREEN,URINE NEGATIVE ng/mL (NEG <=25)
== END 2021-10-16 14:56 | disposition home or self-care (01) ==
LOC: EDUNIT# 12:37 → MED 12:37
DX: S50.11XA Contusion of right forearm, initial encounter (principal); S09.90XA Unspecified injury of head, initial encounter; F10.129 Alcohol abuse with intoxication, unspecified; M79.631 Pain in right forearm; E11.9 Type 2 diabetes mellitus without complications; Z98.890 Other specified postprocedural states; Z87.820 Personal history of traumatic brain injury; Y90.8 Blood alcohol level of 240 mg/100 ml or more; W18.39XA Other fall on same level, initial encounter; Y92.89 Other specified places as the place of occurrence of the external cause; Y93.89 Activity, other specified; Y99.8 Other external cause status
CPT/HCPCS: 36415; 70450; 73090; 80053; 80305; 81003; 82140; 85025; 99285; G0482

== ENCOUNTER 2021-10-20 13:38 | Emergency (ER) | payer MEDICAID ==
[~2021-10-20] VITALS: Ht 162.6 cm; Wt 80.7 kg
[2021-10-20 13:46] VITALS: BP 127/81
--- NOTE | 2021-10-20 13:50 | NUR ---
PT TO WAIT IN CHAIR A.
--- NOTE | 2021-10-20 14:07 | NUR ---
KAREN PETTIT ATTEMPTED TO EVALUATE PT, NO ANSWER IN CHAIR, LOBBY OR OUTSIDE
--- NOTE | 2021-10-20 14:15 | NUR ---
2ND ATTEMPT TO CALL PT, NO ANSWER.
--- NOTE | 2021-10-20 14:41 | NUR ---
FINAL ATTEMPT, NO ANSWER IN LOBBY/OUTSIDE. ATTEMPTED TO CALL PT, NO ANSWER. PATIENT LEFT WITHOUT BEING SEEN BY KAREN PETTIT. NO FURTHER CARE PROVIDED FOR PATIENT.
== END 2021-10-20 14:07 | disposition left against medical advice (07) ==
LOC: MED 13:38
DX: F10.10 Alcohol abuse, uncomplicated (principal); Z53.21 Procedure and treatment not carried out due to patient leaving prior to being seen by health care provider

== ENCOUNTER 2021-10-24 02:24 | Inpatient (IN) | payer MEDICAID ==
[~2021-10-24] VITALS: Ht 167.6 cm; Wt 75.3 kg
[2021-10-24 02:25] VITALS: BP 115/93
[2021-10-24] MEDS ORDERED: LORazepam 2 MG/ML VIAL IVP ONE (02:35)
[2021-10-24] MEDS ORDERED: levETIRAcetam 1,000 MG in NACL 0.9% 100 ML IV ONE (02:35)
[2021-10-24] MEDS ORDERED: levETIRAcetam 100 MG/ML VIAL IV ONE (02:40)
[2021-10-24 02:47] LABS: BASOPHILS % (AUTO) 0.9 % (0.0-2.0); EOSINOPHILS # (AUTO) 0.1 K/uL (0-0.4); EOSINOPHILS % (AUTO) 2.3 % (0.0-4.0); HEMATOCRIT 38.5 % (36-52); HEMOGLOBIN 12.8 g/dL (12.0-18.0); LYMPHOCYTES # (AUTO) 1.6 K/uL (2.0-11.5); LYMPHOCYTES % (AUTO) 32.7 % (20.5-51.1); MEAN CORPUSCULAR HEMOGLOBIN 31 pg (27-31); MEAN CORPUSCULAR HGB CONC 33 g/dL (33-37); MEAN CORPUSCULAR VOLUME 92.6 fL (80-94); MONOCYTES # (AUTO) 0.4 K/uL (0.8-1.0); MONOCYTES % (AUTO) 9.1 % (1.7-9.3); NEUTROPHILS # (AUTO) 2.6 K/uL (1.8-7.7); PLATELET COUNT (AUTO) 131 K/uL (140-450); RED BLOOD CELL COUNT(AUTO) 4.16 MIL/uL (4.20-6.10); RED CELL DISTRIBUTION WIDTH 16.6 % (11.6-13.7); WHITE BLOOD COUNT (AUTO) 4.8 K/uL (4.8-10.8)
[2021-10-24 03:05] LABS: ALBUMIN 3.3 g/dL (3.4-5.0); ANION GAP 16.9 (8-16); CARBON DIOXIDE 22.2 mmol/L (21-32); CREATININE 0.8 mg/dL (0.6-1.3); POTASSIUM 3.1 mmol/L (3.5-5.1); TOTAL BILIRUBIN 1.5 mg/dL (0.0-1.0)
[2021-10-24] MEDS ORDERED: NACL 0.9% 1,000 ML IV ONE (03:25)
[2021-10-24] MEDS ORDERED: LORazepam 1 MG TAB PO PRN (03:25)
--- NOTE | 2021-10-24 03:25 | NUR ---
CORBY SWAB DONE AND SENT TO LAB
--- NOTE | 2021-10-24 03:33 | NUR ---
ADMIT TO MED SURG. HOLD UNTIL AVAIL BED
--- NOTE | 2021-10-24 05:14 | NUR ---
PT RESTING ON MONTIOR AND 2L NC.
[2021-10-24 06:14] LABS: APPEARANCE,URINE CLEAR (CLEAR); BILIRUBIN,URINE NEGATIVE (NEGATIVE); BLOOD, URINE 1+ (NEGATIVE); COLOR,URINE YELLOW (YELLOW); LEUKOCYTE ESTERASE ,URINE NEGATIVE (NEGATIVE); NITRITE, URINE NEGATIVE (NEGATIVE); UGLUCOSE NEGATIVE (NEGATIVE)
--- NOTE | 2021-10-24 06:21 | NUR ---
URINE OBTAINED AND SENT TO LAB. PT IS MORE ALERT .
--- NOTE | 2021-10-24 06:35 | NUR ---
ROOM 124B AFTER CHANGE OF SHIFT.
[2021-10-24 06:41] LABS: WBC,URINE 0-5 /HPF (0-5)
[2021-10-24 06:43] LABS: CALCIUM OXALATE CRYSTALS,UR None Seen /HPF (None Seen); COARSE GRANULAR CASTS,URINE None Seen /LPF (None Seen); FINE GRANULAR CASTS,URINE None Seen /LPF (None Seen); HYALINE CASTS, URINE None Seen /LPF (None Seen); OTHER CASTS, URINE None Seen /LPF (None Seen); OTHER CRYSTALS,URINE None Seen /HPF (None Seen); RED BLOOD CELL CASTS,URINE None Seen /LPF (None Seen); TRICHOMONAS,URINE None Seen /HPF (None Seen); TRIPLE PHOSPHATE CRYSTAL,UR None Seen /HPF (None Seen); URIC ACID CRYSTALS,URINE None Seen /HPF (None Seen); URINE AMORPHOUS URATE None Seen /HPF (None Seen); WAXY CASTS,URINE None Seen /LPF (None Seen); YEAST,URINE Few /HPF (None Seen)
--- NOTE | 2021-10-24 07:19 | NUR ---
RECIEVED REPORT FROM [facility]. ASSUMED CARE AT THIS TIME
--- NOTE | 2021-10-24 07:58 | NUR ---
Patient will be admitted to care of DR ZUÑIGA . Admited to Med/Surg. Will go to room 124B. Belongings list completed. BEDSIDE REPORT GIVEN TO DAVID
[2021-10-24] MEDS ORDERED: HYDROcodone/APAP 7.5/325 MG 1 TAB PO PRN (08:20)
[2021-10-24] MEDS ORDERED: POTASSIUM CHLORIDE 10 MEQ TABER PO PRN (08:20)
[2021-10-24] MEDS ORDERED: ZOLPIDEM 5 MG TAB PO PRN (08:20)
[2021-10-24] MEDS ORDERED: DOCUSATE SODIUM 100 MG GELCAP PO PRN (08:20)
[2021-10-24] MEDS ORDERED: ONDANSETRON 4 MG/2 ML VIAL IM/IVP PRN (08:20)
[2021-10-24] MEDS ORDERED: MULTIVITAMIN-12 10 ML, THIAMINE 100 MG, FOLIC ACID 1 MG, MAGNESIUM SULFATE 50% 2,000 MG... IV SCH ×5 (08:20)
[2021-10-24] MEDS: NACL 0.9% 1,000 ML IV SCH ×2 (08:20→16:30)
[2021-10-24] MEDS ORDERED: ACETAMINOPHEN 325 MG TAB PO PRN (08:20)
[2021-10-24] MEDS ORDERED: guaiFENesin DM 200/20 MG-10 ML 10 ML UDC PO PRN (08:20)
[2021-10-24 09:04] LABS: PROTHROMBIN TIME 10.7 secs (10.8-13.4)
[2021-10-24 09:15] LABS: CHOL/HDL RATIO 1.7 (1-4.5); FREE T4 (FREE THYROXINE) 0.75 ng/dL (0.76-1.46); MAGNESIUM 1.9 mg/dL (1.8-2.4); PHOSPHORUS 3.3 mg/dL (2.5-4.9); THYROID STIMULATING HORMONE 3.18 uIU/mL (0.34-3.74)
[2021-10-24] MEDS ORDERED: FLUCONAZOLE 100 MG TAB PO SCH (12:08)
[2021-10-24] MEDS: levETIRAcetam 500 MG TAB PO SCH ×2 (12:25→20:30)
[2021-10-24] MEDS: PANTOPRAZOLE 40 MG TABEC PO SCH (12:25)
--- NOTE | 2021-10-24 12:50 | NUR ---
PATIENT HAS BEEN SCREENED AND CATEGORIZED MODERATE NUTRITION RISK. PATIENT WILL BE SEEN WITHIN 3-5 DAYS OF ADMISSION. MARLENA HINOJOSA RD
--- NOTE | 2021-10-24 15:55 | NUR ---
DC PLANNING SW ATTEMPTED TO MEET WITH CLIENT FOR THE PURPOSE OF DISCUSSING AND GATHERING COLLATERAL INFORMATION. PATIENT WAS APHASIC. SW UNABLE TO ASSESS PATIENT COMPREHENSION OF QUESTIONS. PATIENT WAS UNABLE TO PROVIDE EMERGENCY CONTACT INFORMATION. SW TO ATTEMPT LOCATING FAMILY/EMERGENCY CONTACT.
[2021-10-24 16:00] VITALS: BP 137/56
--- NOTE | 2021-10-24 18:28 | NUR ---
PATIENT PULLED IV SECOND TIME, INSERTED 20 ON LEFT ARM, IV INFUSING ORDERED, EXPLAINED TO PATIENT THAT HE IS IN HOSPITAL, AND HE NEEDS IV. HE SAYS HE WANT TO GO AND TAKE A SHOWER. COMFORT MEASURE DONE.[id number]
--- NOTE | 2021-10-24 19:35 | NUR ---
RECEIVED PT FROM AM NURSE FOR CONTINUITY OF CARE. PT IS STABLE
[2021-10-24 20:00] VITALS: BP 125/79
--- NOTE | 2021-10-24 21:30 | NUR ---
ALL MED GIVEN, NO SEIZURE NOTED,RESPIRATIONS EVEN AND UNLABORED,NO DISTRESS NOTED
[2021-10-25] VITALS: BP 133/84
[2021-10-25] MEDS: NACL 0.9% 1,000 ML IV SCH ×4 (00:30→23:22)
--- NOTE | 2021-10-25 01:00 | NUR ---
PT SLEEPING COMFORTABLY,BREATHING EVEN AND UNLABORED,NO DISTRESS NOTED
--- NOTE | 2021-10-25 03:00 | NUR ---
COLLRECTED URINE FOR DRUG SCREEN,PT IS STABLE ,NO SEIZURE NOTED
[2021-10-25 04:00] VITALS: BP 127/84
[2021-10-25 05:43] LABS: BASOPHILS % (AUTO) 0.6 % (0.0-2.0); EOSINOPHILS # (AUTO) 0.1 K/uL (0-0.4); EOSINOPHILS % (AUTO) 2.2 % (0.0-4.0); HEMATOCRIT 38.6 % (36-52); HEMOGLOBIN 12.8 g/dL (12.0-18.0); LYMPHOCYTES % (AUTO) 18.9 % (20.5-51.1); MEAN CORPUSCULAR HEMOGLOBIN 31 pg (27-31); MEAN CORPUSCULAR HGB CONC 33 g/dL (33-37); MEAN CORPUSCULAR VOLUME 93.2 fL (80-94); MONOCYTES # (AUTO) 0.4 K/uL (0.8-1.0); MONOCYTES % (AUTO) 8.3 % (1.7-9.3); NEUTROPHILS # (AUTO) 3.7 K/uL (1.8-7.7); PLATELET COUNT (AUTO) 102 K/uL (140-450); RED BLOOD CELL COUNT(AUTO) 4.14 MIL/uL (4.20-6.10); RED CELL DISTRIBUTION WIDTH 16.5 % (11.6-13.7); WHITE BLOOD COUNT (AUTO) 5.2 K/uL (4.8-10.8)
--- NOTE | 2021-10-25 06:00 | NUR ---
PT IS AWAKE ,NO COMPLAIN OF PAIN,NO SEIZURES NOTED
[2021-10-25 06:14] LABS: ANION GAP 13.8 (8-16); CARBON DIOXIDE 25.3 mmol/L (21-32); CREATININE 0.7 mg/dL (0.6-1.3); POTASSIUM 3.1 mmol/L (3.5-5.1)
--- NOTE | 2021-10-25 07:00 | NUR ---
POTASSIUM LEVEL AT 3.1, KDUR 40 MEQ PRN ADMINISTERED
[2021-10-25 08:00] VITALS: BP 124/80
[2021-10-25 08:08] LABS: T4 (THYROXINE) 4.9 ug/dL (4.5-12.0)
[2021-10-25] MEDS: MULTIVITAMIN 1 TAB PO SCH (10:25)
[2021-10-25] MEDS: FOLIC ACID 1 MG TAB PO SCH (10:25)
[2021-10-25] MEDS: PANTOPRAZOLE 40 MG TABEC PO SCH (10:25)
[2021-10-25] MEDS: levETIRAcetam 500 MG TAB PO SCH ×2 (10:25→22:34)
[2021-10-25] MEDS: THIAMINE 100 MG TAB PO SCH (10:26)
--- NOTE | 2021-10-25 11:37 | NUR ---
PATIENT RESTING IN BED AND NO SEIZURES NOTED.
[2021-10-25 12:00] VITALS: BP 110/74
[2021-10-25 16:00] VITALS: BP 120/76
--- NOTE | 2021-10-25 19:20 | NUR ---
RECEIVED PT FROM AM NURSE FOR CONTINUITY OF CARE. PATIENT IS WELL RESTED IN BED. ON ROOM AIR. NO SOB NOTED. BREATHING EVEN UNLABORED. NO COMPLAINTS OF PAIN AT THIS TIME. SAFETY MEASURES IN PLACE. ABLE TO AMBULATE TO THE RESTROOM. CALL LIGHT WITHIN REACH. WILL CONTINUE TO MONITOR PT.
--- NOTE | 2021-10-25 22:34 | NUR ---
ADMINISTERED MEDICATIONS PER MD ORDERED.
[2021-10-26] VITALS: BP 134/88
[2021-10-26] MEDS: NACL 0.9% 1,000 ML IV SCH ×2 (00:20→08:30)
--- NOTE | 2021-10-26 03:40 | NUR ---
PATIENT IS SLEEPING. CHEST RISE AND FALL SYMMETRICALLY. CALL LIGHT WITHIN REACH.
[2021-10-26 05:58] LABS: BASOPHILS % (AUTO) 0.6 % (0.0-2.0); EOSINOPHILS # (AUTO) 0.2 K/uL (0-0.4); EOSINOPHILS % (AUTO) 3.5 % (0.0-4.0); HEMATOCRIT 36.8 % (36-52); HEMOGLOBIN 12.2 g/dL (12.0-18.0); LYMPHOCYTES # (AUTO) 1.2 K/uL (2.0-11.5); LYMPHOCYTES % (AUTO) 26.9 % (20.5-51.1); MEAN CORPUSCULAR HEMOGLOBIN 31 pg (27-31); MEAN CORPUSCULAR HGB CONC 33 g/dL (33-37); MEAN CORPUSCULAR VOLUME 93.7 fL (80-94); MONOCYTES # (AUTO) 0.6 K/uL (0.8-1.0); MONOCYTES % (AUTO) 12.8 % (1.7-9.3); NEUTROPHILS # (AUTO) 2.5 K/uL (1.8-7.7); NEUTROPHILS % (AUTO) 56.2 % (42.2-75.2); PLATELET COUNT (AUTO) 77 K/uL (140-450); RED BLOOD CELL COUNT(AUTO) 3.93 MIL/uL (4.20-6.10); RED CELL DISTRIBUTION WIDTH 16.8 % (11.6-13.7); WHITE BLOOD COUNT (AUTO) 4.4 K/uL (4.8-10.8)
--- NOTE | 2021-10-26 07:21 | NUR ---
ENDORSED PATIENT TO AM NURSE FOR CONTINUITY OF CARE IN STABLE CONDITION
[2021-10-26 07:33] LABS: ANION GAP 14.4 (8-16); CREATININE 0.7 mg/dL (0.6-1.3); POTASSIUM 3.4 mmol/L (3.5-5.1)
[2021-10-26 08:00] VITALS: BP 134/86
[2021-10-26] MEDS: PANTOPRAZOLE 40 MG TABEC PO SCH (08:31)
[2021-10-26] MEDS: THIAMINE 100 MG TAB PO SCH (08:31)
[2021-10-26] MEDS: MULTIVITAMIN 1 TAB PO SCH (08:31)
[2021-10-26] MEDS: FOLIC ACID 1 MG TAB PO SCH (08:32)
[2021-10-26] MEDS: levETIRAcetam 500 MG TAB PO SCH (08:32)
[2021-10-26] MEDS ORDERED: KEP500 PO (10:12)
[2021-10-26] MEDS ORDERED: MULT-2253 PO (10:14)
--- NOTE | 2021-10-26 11:17 | NUR ---
DC PLANNING: THE PATIENT WAS BIBA FROM HOME WITH C/O SEIZURE. 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 ETOH LEVEL 11, PATIENT GIVEN ATIVAN IV AND KEPPRA IVP, ADMITTED TO [facility] FOR OBSERVATION AND NEURO WORKUP. CM ATTEMPTED TO SPEAK WITH PATIENT AT THE BEDSIDE, THE PATIENT IS ABLE TO GIVE ONE WORK ANSWERS OF YES BUT NOT MORE, NOT CLEAR IF HE UNDERSTANDS QUESTIONS OR STATEMENTS HE REPLIES "YES" TO ALL VERBAL INTERACTION. RADHA DELACRUZ HAS BEEN SPEAKING WITH THE PATIENTS MOTHER REGARDING DC PLANNING, PER HIS MOTHER THE PATIENT IS ACTIVELY ALCOHOLIC AND PRIMARILY HOMELESS, SIBLINGS SOMETIMES TAKE HIM IN. DC PLAN AT THIS TIME UNCLEAR, JAYME WILL OUT TO HIS FAMILY TO SEE IF THEY ARE WILLING TO HOUSE HIM, ANTICIPATE PATIENT WILL DC TODAY. CM WILL FOLLOW. Addendum: 10/26/21 at 1240 by Mima Romero CM DC PLANNING: THE RADHA JAYME SPOKE WITH THE PATIENTS MOTHER WHO STATES SHE WILL COME BETWEEN 4-6 PM TODAY TO PICK THE PATIENT UP. SHE IS UNABLE TO COME SOONER SHE IS WORKING. CM WILL FOLLOW.
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
[2021-10-26 14:11] VITALS: BP 134/86
--- NOTE | 2021-10-26 14:50 | NUR ---
patient home in stable condition accompanied by student nurses and endorsed to sister. home with no seizures noted.no iv. iv site dry and intact.
[2021-10-26] MEDS ORDERED: levETIRAcetam 500 MG TAB PO SCH (21:00)
== END 2021-10-26 14:30 | disposition home or self-care (01) | DRG 53 ==
LOC: MED 02:24 → MMU 03:32 → MTU 05:29
PROVIDERS: ADMIT Family Medicine; ATTEND Family Medicine
PROC: 4A00X4Z Measurement of Central Nervous Electrical Activity, External Approach (ICD-10-PCS; principal; 2021-10-26)
DX: G40.409 Other generalized epilepsy and epileptic syndromes, not intractable, without status epilepticus (principal); G92.8 Other toxic encephalopathy; D69.6 Thrombocytopenia, unspecified; E46 Unspecified protein-calorie malnutrition; E87.1 Hypo-osmolality and hyponatremia; E83.51 Hypocalcemia; G93.89 Other specified disorders of brain; K76.0 Fatty (change of) liver, not elsewhere classified; E11.65 Type 2 diabetes mellitus with hyperglycemia; N39.0 Urinary tract infection, site not specified; F10.239 Alcohol dependence with withdrawal, unspecified; R74.01 Elevation of levels of liver transaminase levels; E87.6 Hypokalemia; I10 Essential (primary) hypertension; Z20.822 Contact with and (suspected) exposure to COVID-19; S09.93XA Unspecified injury of face, initial encounter; X58.XXXA Exposure to other specified factors, initial encounter; Y93.89 Activity, other specified; Y92.89 Other specified places as the place of occurrence of the external cause; Y99.8 Other external cause status; I69.320 Aphasia following cerebral infarction; I69.392 Facial weakness following cerebral infarction; Z68.26 Body mass index [BMI] 26.0-26.9, adult
CPT/HCPCS: 36415; 70450; 71045; 76700; 80048; 80053; 81001; 82150; 83036; 83690; 83735; 83880; 84100; 84436; 84439; 84443; 84479; 85025; 85610; 85730; 87081; 96361; 96365; 96375; 99291; A9153; G0482; J1953; J2060; J3411; J3475; J3490; J7030; Q0092

== ENCOUNTER 2021-11-17 08:52 | Emergency (ER) | payer MEDICAID ==
[~2021-11-17] VITALS: Ht 162.6 cm; Wt 68.0 kg
[~2021-11-17 08:52] MED LIST: KEP500 PO; MULT-2253 PO
[2021-11-17 08:53] VITALS: BP 141/98
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
[2021-11-17 10:46] VITALS: BP 98/56
--- NOTE | 2021-11-17 11:05 | NUR ---
PT OFFERED ICE CHIPS, AWAKE AND ALERT, RESPIRATIONS EVEN, DENIES ANY NAUSEA, ABLE TO ANSWER SIMPLE QUESTIONS
--- NOTE | 2021-11-17 11:25 | NUR ---
PT ROAD TESTED. PT AMBULATED TO RESTROOM UNASSISTED WITH STEADY GAIT. DR CHOUDHARY MADE AWARE
--- NOTE | 2021-11-17 11:32 | NUR ---
Patient discharged with v/s stable. Written and verbal after care instructions ABOUT ALCOHOL INTOXICATION given and explained. Patient verbalized understanding. Ambulatory with steady gait. All questions addressed prior to discharge. Advised to follow up with PMD. PT PROVIDED WITH MEAL
== END 2021-11-17 11:32 | disposition home or self-care (01) ==
LOC: MED 08:52
DX: F10.10 Alcohol abuse, uncomplicated (principal); E11.9 Type 2 diabetes mellitus without complications; I10 Essential (primary) hypertension; Z86.73 Personal history of transient ischemic attack (TIA), and cerebral infarction without residual deficits; Z79.899 Other long term (current) drug therapy; Z98.890 Other specified postprocedural states
CPT/HCPCS: 99283

== ENCOUNTER 2021-11-18 10:01 | Emergency (ER) | payer MEDICAID ==
[~2021-11-18] VITALS: Ht 167.6 cm; Wt 90.7 kg
[2021-11-18 10:07] VITALS: BP 118/80
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
[2021-11-18] MEDS ORDERED: NACL 0.9% 1,000 ML IV SCH (10:35)
--- NOTE | 2021-11-18 10:53 | NUR ---
DR. PIRES AT BEDSIDE EVALUATING PATIENT.
--- NOTE | 2021-11-18 11:03 | NUR ---
Lab at bedside.
[2021-11-18 11:37] LABS: BASOPHILS # (AUTO) 0.1 K/uL (0.00-0.22); BASOPHILS % (AUTO) 0.9 % (0.0-2.0); EOSINOPHILS % (AUTO) 0.5 % (0.0-4.0); HEMATOCRIT 44.8 % (36-52); HEMOGLOBIN 14.6 g/dL (12.0-18.0); LYMPHOCYTES % (AUTO) 30.6 % (20.5-51.1); MEAN CORPUSCULAR HEMOGLOBIN 31 pg (27-31); MEAN CORPUSCULAR HGB CONC 33 g/dL (33-37); MEAN CORPUSCULAR VOLUME 93.8 fL (80-94); MONOCYTES # (AUTO) 0.3 K/uL (0.8-1.0); MONOCYTES % (AUTO) 4.5 % (1.7-9.3); NEUTROPHILS # (AUTO) 4.1 K/uL (1.8-7.7); NEUTROPHILS % (AUTO) 63.5 % (42.2-75.2); PLATELET COUNT (AUTO) 217 K/uL (140-450); RED BLOOD CELL COUNT(AUTO) 4.78 MIL/uL (4.20-6.10); RED CELL DISTRIBUTION WIDTH 15.4 % (11.6-13.7); WHITE BLOOD COUNT (AUTO) 6.5 K/uL (4.8-10.8)
[2021-11-18 12:32] LABS: ALBUMIN 3.9 g/dL (3.4-5.0); ANION GAP 13.6 (8-16); CREATININE 0.7 mg/dL (0.6-1.3); POTASSIUM 4.6 mmol/L (3.5-5.1); TOTAL BILIRUBIN 0.5 mg/dL (0.0-1.0)
[2021-11-18] MEDS ORDERED: MAG SULF 2000 MG/WATER PREMIX 50 ML IV STA (13:01)
[2021-11-18] MEDS ORDERED: FOLIC ACID 5 MG, MULTIVITAMIN-12 10 ML in NACL 0.9% 1,000 ML IV ONE (13:05)
[2021-11-18] MEDS ORDERED: THIAMINE 200 MG/2 ML VIAL IM ONE (13:05)
[2021-11-18] MEDS ORDERED: FOLIC ACID 5 MG, MULTIVITAMIN-12 10 ML in NACL 0.9% 1,000 ML IV SCH (13:56)
--- NOTE | 2021-11-18 14:20 | NUR ---
Patient is laying in bed, all needs met. Vital signs stable.
[2021-11-18 15:03] VITALS: BP 132/77
--- NOTE | 2021-11-18 15:03 | NUR ---
Patient discharged with v/s stable. Written and verbal after care instructions given. Patient verbalized understanding. Ambulatory with steady gait. All questions addressed prior to discharge. Advised to follow up with PMD. Homeless packet given.
== END 2021-11-18 15:03 | disposition home or self-care (01) ==
LOC: MED 10:01
DX: F10.129 Alcohol abuse with intoxication, unspecified (principal); E11.9 Type 2 diabetes mellitus without complications; I10 Essential (primary) hypertension; Z86.73 Personal history of transient ischemic attack (TIA), and cerebral infarction without residual deficits; Z79.899 Other long term (current) drug therapy
CPT/HCPCS: 36415; 80053; 83690; 85025; 96361; 96365; 96372; 99284; G0482; J3411; J3475; A9153; J3490; J7030

== ENCOUNTER 2021-12-26 14:59 | Emergency (ER) | payer MEDICAID ==
[~2021-12-26] VITALS: Ht 167.6 cm; Wt 89.8 kg
[2021-12-26 15:06] VITALS: BP 121/77
--- NOTE | 2021-12-26 20:36 | NUR ---
CALLED FOR PT FROM [facility], UNABLE TO LOCATE PT AT THIS TIME.
--- NOTE | 2021-12-26 20:53 | NUR ---
2ND ATTEMPT TO LOCATE PT FROM LOBBY. UNABLE TO LOCATE PT AT THIS TIME.
--- NOTE | 2021-12-26 21:27 | NUR ---
3RD ATTEMP TO L;OCATE PT FROM [facility]. UTL. NO FURTHER CARE PROVIDED.
== END 2021-12-26 20:36 | disposition left against medical advice (07) ==
LOC: MED 14:59
DX: F10.129 Alcohol abuse with intoxication, unspecified (principal); Z53.21 Procedure and treatment not carried out due to patient leaving prior to being seen by health care provider

== ENCOUNTER 2022-09-27 20:24 | Inpatient (IN) | payer MEDICAID ==
[~2022-09-27] VITALS: Ht 175.3 cm; Wt 86.2 kg
--- NOTE | 2022-09-27 20:32 | NUR ---
PT JAZZ ALS. TAKEN TO BED 8
[2022-09-27 20:34] VITALS: BP 120/88
--- NOTE | 2022-09-27 20:37 | NUR ---
Dr. Horan spoke with patient's mother.
--- NOTE | 2022-09-27 20:42 | NUR ---
Dr. Horan examining patient.
[2022-09-27] MEDS ORDERED: NACL 0.9% 1,000 ML IV ONE (20:45)
[2022-09-27] MEDS ORDERED: LORazepam 2 MG/ML VIAL IVP ONE (20:45)
[2022-09-27] MEDS ORDERED: levETIRAcetam 1,000 MG in NACL 0.9% 100 ML IV ONE (20:45)
--- NOTE | 2022-09-27 21:02 | NUR ---
Patient taken to CT scan via gurney.
--- NOTE | 2022-09-27 21:14 | NUR ---
PT RETURN FROM CT
[2022-09-27] MEDS ORDERED: levETIRAcetam 100 MG/ML VIAL IV ONE (21:17)
[2022-09-27 21:23] LABS: BASOPHILS % (AUTO) 0.3 % (0.0-2.0); EOSINOPHILS % (AUTO) 0.1 % (0.0-4.0); HEMATOCRIT 46.8 % (36-52); HEMOGLOBIN 15.8 g/dL (12.0-18.0); LYMPHOCYTES # (AUTO) 0.8 K/uL (2.0-11.5); LYMPHOCYTES % (AUTO) 7.5 % (20.5-51.1); MEAN CORPUSCULAR HEMOGLOBIN 32 pg (27-31); MEAN CORPUSCULAR HGB CONC 34 g/dL (33-37); MEAN CORPUSCULAR VOLUME 93.2 fL (80-94); MONOCYTES # (AUTO) 0.9 K/uL (0.8-1.0); NEUTROPHILS % (AUTO) 84.1 % (42.2-75.2); PLATELET COUNT (AUTO) 202 K/uL (140-450); RED BLOOD CELL COUNT(AUTO) 5.03 MIL/uL (4.20-6.10); RED CELL DISTRIBUTION WIDTH 13.8 % (11.6-13.7); WHITE BLOOD COUNT (AUTO) 10.7 K/uL (4.8-10.8)
[2022-09-27 21:44] LABS: ALBUMIN 4.1 g/dL (3.4-5.0); ANION GAP 15.8 (8-16); ASPARTATE AMINOTRANSFERASE 41 U/L (15-37); CARBON DIOXIDE 26.7 mmol/L (21-32); CHLORIDE 101 mmol/L (98-107); CREATININE 1.3 mg/dL (0.6-1.3); GFR ARICAN-AMERICAN 79 mL/min (>90); GLUCOSE 141 mg/dL (74-106); POTASSIUM 3.5 mmol/L (3.5-5.1); SODIUM SERUM 140 mmol/L (136-145); TOTAL BILIRUBIN 0.7 mg/dL (0.0-1.0); UREA NITROGEN, BLOOD 10 mg/dL (7-18)
[2022-09-27 21:46] LABS: SALICYLATE < 2.8 mg/dL (2.8-20.0)
--- NOTE | 2022-09-27 22:10 | NUR ---
COVID-19 swab collected and sent to lab.
[2022-09-27 22:18] LABS: ACETAMINOPHEN < 0.5 ug/ml (10-30)
[2022-09-27] MEDS ORDERED: LORazepam 2 MG/ML VIAL IVP PRN (22:50)
[2022-09-27] MEDS ORDERED: FOLIC ACID IV SCH (23:30)
[2022-09-27] MEDS ORDERED: MAG SULF 2000 MG/WATER PREMIX 50 ML IV SCH (23:30)
[2022-09-27] MEDS ORDERED: THIAMINE IV SCH (23:30)
[2022-09-27] MEDS ORDERED: NACL 0.9% IV SCH (23:30)
--- NOTE | 2022-09-28 00:50 | NUR ---
Pt report given to CHET Woodruff. transfer to telemtry bed 126A
[2022-09-28] MEDS ORDERED: THIAMINE 200 MG/2 ML VIAL ONE (00:54)
[2022-09-28] MEDS ORDERED: FOLIC ACID 5 MG/ML SYR ONE (01:01)
[2022-09-28 01:40] VITALS: BP 122/63
--- NOTE | 2022-09-28 01:40 | NUR ---
PT ARRIVED FROM ER VIA GURNEY. PT AWAKE, ALERT AND ORIENTED X 3. PT APHASIC, AMBULATED TO BED WITH STEADY GAIT. ON ROOM AIR, BREATHING EVEN AND UNLABORED.IV ON L FA G20 SWOLLEN AND INFILTRATED. NO S/SX OF DISTRESS AT THIS MOMENT. NO COMPLAINS OF PAIN. ORIENTED TO ROOM AND CALL LIGHT.MRSA SWAB DONE. SEIZURE PRECAUTIONS IN PLACE. ALL SAFETY PRECAUTIONS IN PLACE. CALL LIGHT WITHIN REACH. WILL CONTINUE TO MONITOR.
--- NOTE | 2022-09-28 02:00 | NUR ---
Complaining of pain to IV site. Restarted on R AC G20. Successful after 1 attempt. Will observe for any signs of infiltration.
[2022-09-28] MEDS ORDERED: MAG SULF 2000 MG/WATER PREMIX 50 ML IV SCH (02:05)
[2022-09-28 04:00] VITALS: BP 97/55
--- NOTE | 2022-09-28 06:40 | NUR ---
PT IS STABLE. NO ACUTE EVENTS THROUGHOUT THE NIGHT.ALL NEEDS MET. NO S/SX OF DISTRESS AT THE MOMENT. ALL PRECAUTIONS IN PLACE. CALL LIGHT WITHIN REACH. WILL ENDORSE TO DAY SHIFT NURSE.
[2022-09-28 08:00] VITALS: BP 97/55
--- NOTE | 2022-09-28 08:06 | NUR ---
RECEIVED IN NOACUTE DISTRESS, AOX3. ALL SAFETY MEASURES IN PLACE VOIDING WELL
--- NOTE | 2022-09-28 10:30 | NUR ---
PATIENT HAS BEEN SCREENED AND CATEGORIZED MODERATE NUTRITION RISK. PATIENT WILL BE SEEN WITHIN 3-5 DAYS OF ADMISSION. / REVIEWED BY MARLENA HINOJOSA RD
[2022-09-28] MEDS ORDERED: ONDANSETRON 4 MG/2 ML VIAL IVP PRN (10:55)
[2022-09-28] MEDS ORDERED: diazePAM 5 MG TAB PO PRN (10:55)
[2022-09-28 11:25] LABS: BASOPHILS % (AUTO) 0.5 % (0.0-2.0); EOSINOPHILS % (AUTO) 0.3 % (0.0-4.0); HEMATOCRIT 44.6 % (36-52); HEMOGLOBIN 15.1 g/dL (12.0-18.0); LYMPHOCYTES # (AUTO) 0.9 K/uL (2.0-11.5); LYMPHOCYTES % (AUTO) 10.3 % (20.5-51.1); MEAN CORPUSCULAR HEMOGLOBIN 32 pg (27-31); MEAN CORPUSCULAR HGB CONC 34 g/dL (33-37); MEAN CORPUSCULAR VOLUME 94.1 fL (80-94); MONOCYTES # (AUTO) 0.9 K/uL (0.8-1.0); MONOCYTES % (AUTO) 9.4 % (1.7-9.3); NEUTROPHILS # (AUTO) 7.3 K/uL (1.8-7.7); NEUTROPHILS % (AUTO) 79.5 % (42.2-75.2); PLATELET COUNT (AUTO) 183 K/uL (140-450); RED BLOOD CELL COUNT(AUTO) 4.74 MIL/uL (4.20-6.10); RED CELL DISTRIBUTION WIDTH 13.4 % (11.6-13.7); WHITE BLOOD COUNT (AUTO) 9.1 K/uL (4.8-10.8)
[2022-09-28 11:40] LABS: ANION GAP 13.1 (8-16); CARBON DIOXIDE 26.6 mmol/L (21-32); POTASSIUM 3.7 mmol/L (3.5-5.1)
[2022-09-28 12:00] VITALS: BP 97/55
--- NOTE | 2022-09-28 12:13 | NUR ---
DC PLANNING SW ATTEMPTED TO MEET PT AT BEDSIDE HOWEVER, PT STRUGGLED TO PARTICIPATE IN ASSESSMENT. PT APHASIC AND CAN ONLY ANSWER SIMPLE QUESTIONS WITH YES OR NO ANSWERS. SW REQUESTED PERMISSION TO CALL PTS MOTHER FATIMAH AGUILAR, TO GATHER COLLAT INFO, PT AGREED. SW OUTREACHED TO PTS MOTHER FATIMAH, . FATIMAH UNAVAILABLE AND RETURN CONTACT PROVIDED TO FAMILY MEMBER THAT ANSWERED. SW TO FOLLOW
[2022-09-28 12:36] LABS: CKMB RELATIVE INDEX 0.5 (0.0-2.5); CREATINE KINASE MB 14.5 ng/mL (0-3.6)
--- NOTE | 2022-09-28 20:00 | NUR ---
PATIENT IN BED WELL RESTED ON ROOM AIR. NO SOB NOTED. RESPIRATION EVEN UNLABORED. IVF BANANA BAG INFUSING 100 ML/HR IN THE RIGHT AC. DENIES PAIN OR ANY DISCOMFORT. SAFETY MEASURES IN PLACE. AMBULATORY. CALL LIGHT ON EASY REACH.
[2022-09-28 20:23] VITALS: BP 97/55
[2022-09-28] MEDS: levETIRAcetam 500 MG TAB PO SCH (21:20)
--- NOTE | 2022-09-28 21:20 | NUR ---
ADMINISTERED SCHEDULED DUE MEDICATION.
[2022-09-29] VITALS: BP 105/66
[2022-09-29 04:00] VITALS: BP 105/73
[2022-09-29 06:09] LABS: BASOPHILS % (AUTO) 0.7 % (0.0-2.0); EOSINOPHILS # (AUTO) 0.1 K/uL (0-0.4); EOSINOPHILS % (AUTO) 1.6 % (0.0-4.0); HEMATOCRIT 42.1 % (36-52); HEMOGLOBIN 14.3 g/dL (12.0-18.0); LYMPHOCYTES # (AUTO) 1.4 K/uL (2.0-11.5); LYMPHOCYTES % (AUTO) 30.4 % (20.5-51.1); MEAN CORPUSCULAR HEMOGLOBIN 32 pg (27-31); MEAN CORPUSCULAR HGB CONC 34 g/dL (33-37); MONOCYTES # (AUTO) 0.4 K/uL (0.8-1.0); MONOCYTES % (AUTO) 9.3 % (1.7-9.3); NEUTROPHILS # (AUTO) 2.7 K/uL (1.8-7.7); PLATELET COUNT (AUTO) 155 K/uL (140-450); RED BLOOD CELL COUNT(AUTO) 4.43 MIL/uL (4.20-6.10); RED CELL DISTRIBUTION WIDTH 13.5 % (11.6-13.7); WHITE BLOOD COUNT (AUTO) 4.7 K/uL (4.8-10.8)
[2022-09-29 07:07] LABS: ALBUMIN 3.3 g/dL (3.4-5.0); ANION GAP 11.9 (8-16); CARBON DIOXIDE 27.4 mmol/L (21-32); CREATININE 0.9 mg/dL (0.6-1.3); POTASSIUM 3.3 mmol/L (3.5-5.1); TOTAL BILIRUBIN 1.9 mg/dL (0.0-1.0)
--- NOTE | 2022-09-29 07:07 | NUR ---
GAVE REPORT TO MORNING SHIFT NURSE FOR CONTINUITY OF CARE. PATIENT STABLE.
[2022-09-29] MEDS: FOLIC ACID IV SCH (08:00)
[2022-09-29] MEDS: MULTIVITAMIN IV SCH (08:00)
[2022-09-29] MEDS: NACL IV SCH (08:00)
[2022-09-29] MEDS: THIAMINE IV SCH (08:00)
[2022-09-29] MEDS: levETIRAcetam 500 MG TAB PO SCH ×2 (09:00→20:47)
[2022-09-29 11:34] VITALS: BP 111/77
[2022-09-29 16:00] VITALS: BP 109/77
[2022-09-29 20:00] VITALS: BP 109/73
--- NOTE | 2022-09-29 20:47 | NUR ---
ADMINISTERED SCHEDULED DUE MEDICATION.
[2022-09-30] VITALS: BP 102/66
[2022-09-30 04:00] VITALS: BP 104/65
[2022-09-30 06:11] LABS: BASOPHILS % (AUTO) 0.8 % (0.0-2.0); EOSINOPHILS # (AUTO) 0.2 K/uL (0-0.4); HEMATOCRIT 44.3 % (36-52); HEMOGLOBIN 14.6 g/dL (12.0-18.0); LYMPHOCYTES # (AUTO) 1.6 K/uL (2.0-11.5); LYMPHOCYTES % (AUTO) 30.5 % (20.5-51.1); MEAN CORPUSCULAR HEMOGLOBIN 32 pg (27-31); MEAN CORPUSCULAR HGB CONC 33 g/dL (33-37); MEAN CORPUSCULAR VOLUME 95.7 fL (80-94); MONOCYTES # (AUTO) 0.5 K/uL (0.8-1.0); MONOCYTES % (AUTO) 9.9 % (1.7-9.3); NEUTROPHILS % (AUTO) 55.8 % (42.2-75.2); PLATELET COUNT (AUTO) 158 K/uL (140-450); RED BLOOD CELL COUNT(AUTO) 4.63 MIL/uL (4.20-6.10); RED CELL DISTRIBUTION WIDTH 13.8 % (11.6-13.7); WHITE BLOOD COUNT (AUTO) 5.3 K/uL (4.8-10.8)
--- NOTE | 2022-09-30 06:44 | NUR ---
PATIENT IS AWAKE VERBALLY RESPONSIVE. BREATHING NORMAL WITH SYMMETRICAL RISE AND FALL OF THE CHEST. AFEBRILE. PATIENT IN STABLE CONDITION. WILL ENDORSE TO DAY SHIFT NURSE FOR CONTINUITY OF CARE.
[2022-09-30 06:48] LABS: ANION GAP 13.3 (8-16); CARBON DIOXIDE 26.3 mmol/L (21-32); CREATININE 0.8 mg/dL (0.6-1.3); POTASSIUM 3.6 mmol/L (3.5-5.1)
[2022-09-30 07:18] LABS: CKMB RELATIVE INDEX 0.2 (0.0-2.5)
--- NOTE | 2022-09-30 07:50 | NUR ---
ENDORSED PATIENT TO AM NURSE SANDRA FOR CONTINUITY OF CARE.
[2022-09-30] MEDS: MULTIVITAMIN IV SCH (09:54)
[2022-09-30] MEDS: NACL IV SCH (09:54)
[2022-09-30] MEDS: FOLIC ACID IV SCH (09:54)
[2022-09-30] MEDS: THIAMINE IV SCH (09:54)
[2022-09-30] MEDS: levETIRAcetam 500 MG TAB PO SCH ×2 (09:55→20:40)
--- NOTE | 2022-09-30 10:15 | NUR ---
SCREEN FOR LOW LEO SCALE AT RISK, CONTINUE TO FOLLOW PRESSURE ULCER PREVENTION INTERVENTIONS. -TURN AND REPOSITION PATIENT Q 2H, ASSIST IF NEEDED -ASSESS AND MONITOR SKIN CONDITION DURING POSITION CHANGES -OFFLOAD BILATERAL HEELS BY PLACING PILLOWS UNDER CALVES AT ALL TIMES, UNLESS OTHERWISE CONTRAINDICATED -PRESSURE REDISTRIBUTION BY PLACING PILLOWS AND OFFLOADING SACRALCOCCYX -KEEP SKIN CLEAN AND DRY AT ALL TIMES.
[2022-09-30 10:20] LABS: APPEARANCE,URINE CLEAR (CLEAR); BILIRUBIN,URINE NEGATIVE (NEGATIVE); BLOOD, URINE NEGATIVE (NEGATIVE); COLOR,URINE YELLOW (YELLOW); LEUKOCYTE ESTERASE ,URINE NEGATIVE (NEGATIVE); NITRITE, URINE NEGATIVE (NEGATIVE); PH,URINE 6.5 (5.0-9.0); UGLUCOSE NEGATIVE (NEGATIVE)
[2022-09-30 10:39] LABS: BARBITURATE, URINE NEGATIVE ng/ml (NEG <=200); BENZODIAZEPINE, URINE NEGATIVE ng/mL (NEG <=200); CANNABINOID, URINE NEGATIVE ng/mL (NEG <=50); COCAINE, URINE NEGATIVE ng/mL (NEG <=300); OPIATE, URINE NEGATIVE ng/mL (NEG <=2000); PHENCYCLIDINE SCREEN,URINE NEGATIVE ng/mL (NEG <=25)
--- NOTE | 2022-09-30 13:14 | NUR ---
P.T. NOTES P.T. EVAL COMPLETED; REFER TO EVAL FOR DETAILS.
--- NOTE | 2022-09-30 19:30 | NUR ---
RECEIVED REPORT FROM DAY SHIFT NURSE SANDRA FOR CONTINUITY OF CARE. PATIENT IS A&O X4. PATIENT IS ON ROOM AIR, BREATHING IS NORMAL WITH SYMMETRICAL RISE AND FALL OF CHEST. IV IS A RAC 20G, RUNNING FOLIVITE (BANANA BAG) 100. PATIENT IS AWAKE, LYING IN SEMI-FOWLERS POSITION. BED IS IN LOWEST POSITION WITH WHEELS LOCKED AND CALL LIGHT IN PLACE. WILL CONTINUE TO OBSERVE PATIENT.
[2022-09-30 20:00] VITALS: BP 124/79
--- NOTE | 2022-10-01 03:45 | NUR ---
PATIENT HAS SLEPT OFF AND ON THROUGHOUT THE NIGHT. PATIENT IS LYING SEMI-FOWLERS. BREATHING IS NORMAL WITH SYMMETRICAL RISE AND FALL OF CHEST. WILL CONTINUE TO OBSERVE PATIENT.
--- NOTE | 2022-10-01 04:06 | NUR ---
ENDORSED PATIENT TO STREETCAR REPAIRER HELPER NURSE NICHOLAS FOR CONTINUITY OF CARE. PATIENT IS STABLE.
[2022-10-01 08:00] VITALS: BP 124/74
[2022-10-01 08:50] LABS: BASOPHILS # (AUTO) 0.1 K/uL (0.00-0.22); BASOPHILS % (AUTO) 1.2 % (0.0-2.0); EOSINOPHILS # (AUTO) 0.2 K/uL (0-0.4); EOSINOPHILS % (AUTO) 2.7 % (0.0-4.0); HEMATOCRIT 43.8 % (36-52); HEMOGLOBIN 14.8 g/dL (12.0-18.0); LYMPHOCYTES # (AUTO) 1.3 K/uL (2.0-11.5); MEAN CORPUSCULAR HEMOGLOBIN 32 pg (27-31); MEAN CORPUSCULAR HGB CONC 34 g/dL (33-37); MEAN CORPUSCULAR VOLUME 93.7 fL (80-94); MONOCYTES # (AUTO) 0.6 K/uL (0.8-1.0); MONOCYTES % (AUTO) 8.9 % (1.7-9.3); NEUTROPHILS # (AUTO) 4.3 K/uL (1.8-7.7); NEUTROPHILS % (AUTO) 66.2 % (42.2-75.2); PLATELET COUNT (AUTO) 167 K/uL (140-450); RED BLOOD CELL COUNT(AUTO) 4.67 MIL/uL (4.20-6.10); RED CELL DISTRIBUTION WIDTH 13.4 % (11.6-13.7); WHITE BLOOD COUNT (AUTO) 6.4 K/uL (4.8-10.8)
[2022-10-01 08:58] LABS: ANION GAP 11.6 (8-16); CREATININE 0.8 mg/dL (0.6-1.3); POTASSIUM 3.6 mmol/L (3.5-5.1)
[2022-10-01 10:19] LABS: BARBITURATE, URINE NEGATIVE ng/ml (NEG <=200); BENZODIAZEPINE, URINE NEGATIVE ng/mL (NEG <=200); CANNABINOID, URINE NEGATIVE ng/mL (NEG <=50); COCAINE, URINE NEGATIVE ng/mL (NEG <=300); OPIATE, URINE NEGATIVE ng/mL (NEG <=2000); PHENCYCLIDINE SCREEN,URINE NEGATIVE ng/mL (NEG <=25)
[2022-10-01] MEDS: levETIRAcetam 500 MG TAB PO SCH ×2 (11:06→21:05)
[2022-10-01 16:00] VITALS: BP 126/88
--- NOTE | 2022-10-01 19:15 | NUR ---
ENDORSE PATIENT IN STABLE CONDITION TO PM SHIFT NURSE WHILE IV ANTIBIOTIC ROCEPHIN INFUSING AT 100ML/HR Addendum: 10/01/22 at 1917 by Brooke Swift RN WRONG PATIENT ENDORSE PATIENT IN STABLE CONDITION TO PM SHIFT NURSE WHILE PIV SALINE LOCK AT RAC 22G PATENT
--- NOTE | 2022-10-01 19:20 | NUR ---
RECEIVED PATIENT FROM AN NURSE FOR CONTINUITY OF CARE.PT IS TABLE
[2022-10-02] VITALS: BP 119/79
--- NOTE | 2022-10-02 07:11 | NUR ---
ASSUMED CONTINUITY OF CARE. INITIAL ASSESSMENT DONE. RE-ORIENTED TO EVENTS AND SURROUNDINGS. KEEP COMFORTABLE ON BED. SEIZURE AND FALL PRECAUTION APPLIED. CALL LIGHT WITHIN REACH.
[2022-10-02 07:59] LABS: BASOPHILS % (AUTO) 0.5 % (0.0-2.0); EOSINOPHILS # (AUTO) 0.2 K/uL (0-0.4); LYMPHOCYTES # (AUTO) 1.9 K/uL (2.0-11.5); LYMPHOCYTES % (AUTO) 24.9 % (20.5-51.1); MEAN CORPUSCULAR HEMOGLOBIN 32 pg (27-31); MEAN CORPUSCULAR HGB CONC 33 g/dL (33-37); MEAN CORPUSCULAR VOLUME 95.3 fL (80-94); MONOCYTES # (AUTO) 0.6 K/uL (0.8-1.0); MONOCYTES % (AUTO) 8.2 % (1.7-9.3); NEUTROPHILS # (AUTO) 4.9 K/uL (1.8-7.7); NEUTROPHILS % (AUTO) 64.4 % (42.2-75.2); PLATELET COUNT (AUTO) 173 K/uL (140-450); RED BLOOD CELL COUNT(AUTO) 5.04 MIL/uL (4.20-6.10); RED CELL DISTRIBUTION WIDTH 13.7 % (11.6-13.7); WHITE BLOOD COUNT (AUTO) 7.6 K/uL (4.8-10.8)
[2022-10-02 08:00] VITALS: BP 141/85
[2022-10-02 08:30] LABS: ALBUMIN 3.8 g/dL (3.4-5.0); ANION GAP 11.4 (8-16); CARBON DIOXIDE 26.6 mmol/L (21-32); CREATININE 0.9 mg/dL (0.6-1.3); TOTAL BILIRUBIN 0.9 mg/dL (0.0-1.0)
[2022-10-02] MEDS: levETIRAcetam 500 MG TAB PO SCH (08:33)
[2022-10-02] MEDS ORDERED: MULT-2253 PO (10:27)
[2022-10-02] MEDS ORDERED: THIA100T45 PO (10:27)
[2022-10-02] MEDS ORDERED: DIAZ5TAB13 PO (10:27)
[2022-10-02] MEDS ORDERED: FOLI1TAB90 PO (10:27)
[2022-10-02 12:00] VITALS: BP 118/86
--- NOTE | 2022-10-02 13:30 | NUR ---
D/C HOME VIA WHEELCHAIR ACCOMPANIED BY PT. SISTER. IN STABLE CONDITION. CHARGE NURSE CASEY HENRIQUEZ WAS AWARE.
== END 2022-10-02 13:30 | disposition home or self-care (01) | DRG 53 ==
LOC: MED 20:24 → MTU 23:03 → MMU 23:46
PROVIDERS: ADMIT Preventive Medicine Preventive Medicine/Occupational Environmental Medicine; ATTEND Preventive Medicine Preventive Medicine/Occupational Environmental Medicine
DX: G40.909 Epilepsy, unspecified, not intractable, without status epilepticus (principal); M62.82 Rhabdomyolysis; F10.139 Alcohol abuse with withdrawal, unspecified; E83.52 Hypercalcemia; R73.9 Hyperglycemia, unspecified; Z20.822 Contact with and (suspected) exposure to COVID-19; I10 Essential (primary) hypertension; Z86.73 Personal history of transient ischemic attack (TIA), and cerebral infarction without residual deficits
CPT/HCPCS: 36415; 70450; 71045; 80048; 80053; 80173; 80305; 81003; 82550; 82553; 82948; 84484; 85025; 87081; 93005; 96365; 96375; 97163-GP; 99285; A9153; G0480; G0482; J1953; J2060; J3411; J3475; J3490; J7030